=== PATIENT | female | born 1995 | race Caucasian/White ===

== ENCOUNTER 2022-09-19 13:49 | Emergency (ER) | payer OTHER, SELFPAY ==
[2022-09-19 14:00] VITALS: BP 129/82; PULSE 90; RESP 20; TEMP 36.8; O2SAT 99
[2022-09-19 14:05] VITALS: BP 129/82; PULSE 90; RESP 20; TEMP 36.8; O2SAT 99
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
== END 2022-09-19 14:21 | disposition home or self-care (01) ==
PROVIDERS: Emergency Provider Nurse Practitioner Family; PCP Physician Assistant
DX: S46.911A Strain of unspecified muscle, fascia and tendon at shoulder and upper arm level, right arm, initial encounter (principal); Y04.0XXA Assault by unarmed brawl or fight, initial encounter; Y99.0 Civilian activity done for income or pay
CPT/HCPCS: 99213; G0463

== ENCOUNTER 2022-12-26 09:45 | Emergency (ER) | payer OTHER, SELFPAY ==
[2022-12-26 09:50] VITALS: BP 135/74; PULSE 98; RESP 18; TEMP 36.8; O2SAT 100
--- NOTE | 2022-12-26 10:00 | ED.EAR ---
HPI - Ear Problem General Chief complaint: Upper Respiratory Infection Stated complaint: Sore throat; Ear ache History of Present Illness HPI Narrative: Patient presents with sinus congestion and pressure. Patient states she takes a daily allergy medication and uses nasal spray as instructed by her primary care provider. Patient reports history of eustachian tube dysfunction and seasonal allergies. No fever no cough no shortness of breath no sore throat no trouble swallowing no drooling. Related Data Home Medications Medication Instructions Recorded Confirmed bupropion HCl 150 mg 24 hr tablet, 150 mg PO DAILY 09/19/22 12/26/22 extended release venlafaxine 75 mg capsule,extended 75 mg PO DAILY 09/19/22 12/26/22 release 24 hr Allergies Allergy/AdvReac Type Severity Reaction Status Date / Time fentanyl Allergy Itching Verified 12/26/22 09:52 hydromorphone [From Dilaudid] Allergy Itching Verified 12/26/22 09:52 Review of Systems Review of Systems: CONSTITUTIONAL: Denies chills, or sweats. Reports fever and generalized body aches EYES: Denies visual changes, redness, or discharge. ENT: Denies otalgia. Reports nasal congestion runny nose and sore throat CARDIOVASCULAR: Denies chest pain, palpitations, or edema. RESPIRATORY: Denies dyspnea. Reports occasional cough GASTROINTESTINAL: Denies abdominal pain, nausea, vomiting, or diarrhea. GENITOURINARY: Denies dysuria or hematuria. SKIN: Denies rash or itching. MUSCULOSKELETAL: Denies back pain, joint pain, or myalgia. Reports generalized body aches NEUROLOGIC: Denies headache, numbness, or weakness. PSYCHIATRIC: Denies anxiety or depression. PMFSH Comments At time of signature, agree with nursing past medical, surgical, social and family history. There is no relevant family history pertinent to the presenting complaint Exam Narrative: The patient is a well-developed, well-nourished in no acute distress. SKIN: Skin is warm and dry without erythema, swelling or exudate. There is good turgor. No tenting. HEAD: Atraumatic. Normocephalic. No temporal or scalp tenderness. EYES: Moist and bright. Sclera and conjunctivae normal. No discharge. PERRLA. Extraocular motions intact. Gross visual acuity intact. EARS: Pinna is normal shape and contour. Clear external auditory canals. TM pearly lima with good cone of light, no erythema or suppuration. Bilateral cerumen noted no gross hearing deficit. NOSE: pink, moist mucosa with good air movement. Clear rhinorrhea without nasal flaring. Septum midline. Mild pharyngeal drainage moderate maxillary sinus tenderness and pressure Mouth: moist mucous membranes. THROAT; mild erythema noted to posterior oropharynx with moderate postnasal drainage. Without exudate or ulceration.. Uvula midline. Normal movement of soft palate. NECK: Supple and nontender with full range of motion without discomfort. No meningeal signs. LUNGS: Equal and bilateral breath sounds without wheezes, rales or rhonchi. CHEST: The chest wall is without retractions or use of accessory muscles. HEART: Has a regular rate and rhythm without murmur, gallops, click or rub. ABDOMEN: Soft, nontender with positive active bowel sounds. No rebound tenderness. EXTREMITIES: Without cyanosis, clubbing or edema. Equal 2+ distal pulses and 2 second capillary refill noted. NEUROLOGIC: alert, active, . The patient moves all extremities with normal muscle strength. Normal muscle tone is noted. Normal coordination is noted. NO focal neurological findings noted. Course Course Level of Care: Express Care Visit Discharge Plan Discharge Clinical Impression: Sinusitis Patient Disposition: Home, Self-Care Condition: Stable Instructions: Antibiotic Form, Sinusitis (ED) Additional Instructions: , Drink plenty of water (with the goal to keep your urine clear to light yellow) and get plenty of rest (8-9 hours a night).You may try saline rinses ([place]/Simply Saline/Neti Po
== END 2022-12-26 10:05 | disposition home or self-care (01) ==
PROVIDERS: Emergency Provider Nurse Practitioner Family; PCP Physician Assistant
DX: J32.9 Chronic sinusitis, unspecified (principal); F32.A Depression, unspecified
CPT/HCPCS: 99213; G0463